=== PATIENT | male | born 1965 | race Caucasian/White ===

== ENCOUNTER → 2016-11-24 | Outpatient (CLI) | payer BC ==
[~2016-11-24] MED LIST: ASPI81TA28 PO; PRAV20TA PO; PRAV40TA2 PO
[2016-11-24 09:33] LABS: BASO % 0.2 %; BASO ABS # 0.01 K/uL (0-0.2); COMPLETE YES; EOS % 2.2 %; HEMATOCRIT 42.5 % (42-52); IG% 0.4 %; LYMPH % 40.8 %; LYMPH ABS # 1.89 K/uL (1.2-3.4); MEAN CELL VOLUME 85.3 fL (80-100); MEAN CORPUSCULAR HEMOGLOBIN 30.7 pg (25-34); MEAN PLATELET VOLUME 10.5 fL (7.4-10.4); MONO % 7.1 %; NEUT % 49.3 %; PLATELET COUNT 190 K/uL (130-400); RED BLOOD COUNT 4.98 M/uL (4.7-6.1); WHITE BLOOD COUNT 4.63 K/uL (4.8-10.8)
[2016-11-24 09:47] LABS: ALT/SGPT 35 U/L (12-78); AST/SGOT 19 U/L (15-37); BLOOD UREA NITROGEN 14 mg/dl (7-18); BUN/CREATININE RATIO 14.4 (10-20); CALCIUM 9.3 mg/dl (8.5-10.1); CARBON DIOXIDE 26 mmol/L (21-32); CHLORIDE 106 mmol/L (98-107); CREATININE 0.95 mg/dl (0.60-1.40); GLUCOSE 104 mg/dl (70-99); POTASSIUM 4.1 mmol/L (3.5-5.1); SODIUM 142 mmol/L (136-145)
[2016-11-24 09:53] LABS: ALB/GLOB RATIO 1.3 (0.9-2); ALKALINE PHOSPHATASE 82 U/L (45-117); CHOLESTEROL 206 mg/dl (0-200); CHOLESTEROL/HDL RATIO 5.6; HDL CHOLESTEROL 37 mg/dl; LDL CHOLESTEROL CALCULATED 125 mg/dl; TRIGLYCERIDES 219 mg/dl (0-150); VERY LOW DENSITY LIPOPROT CALC 44 mg/dl
== END | disposition home or self-care (01) ==
LOC: C.LAB1850 07:29
PROVIDERS: ATTEND Nurse Practitioner Family
DX: E78.00 Pure hypercholesterolemia, unspecified (principal)

== ENCOUNTER → 2016-12-02 | Outpatient (CLI) | payer BC ==
--- NOTE | 2016-12-02 14:56 | DIAGNOSTIC IMAGING REPORT ---
Study: Fusion CT of the sinuses INDICATION: Nasal septal deviation. Hypertrophic nasal turbinates. FINDINGS: Nasal septal displacement to the left. Moderate hypertrophic change and polypoid changes of the nasal turbinates. There is no evidence for a major nasal occlusive process. Prior antral window placement bilaterally. These are considered patent. The marshall ostiomeatal units show soft tissue narrowing. Moderate mucosal thickening of the maxillary and to a lesser extent ethmoid sinuses. Frontal sinuses are clear. Sphenoid sinuses are clear. There is no bony destructive process. The orbital margins are intact. IMPRESSION: 1. Moderate mucosal thickening of the maxillary and to a lesser extent ethmoid sinuses. 2. Nasal septal displacement to the left with mild to moderate hyperplastic change of the nasal turbinates. 3. Patent bilateral antral windows with soft tissue narrowing of the marshall ostiomeatal units. Electronically signed by: Stoney Mckeon M.D. 12/02/2016 2:55 PM Dictated Date/Time: 12/02/2016 2:47 PM
== END | disposition home or self-care (01) ==
LOC: C.CTS 14:03
PROVIDERS: ATTEND Physician Assistant
DX: J34.2 Deviated nasal septum (principal); J32.9 Chronic sinusitis, unspecified; J34.3 Hypertrophy of nasal turbinates

== ENCOUNTER → 2016-12-26 | Outpatient (CLI) | payer BC ==
--- NOTE | 2016-12-26 14:19 | DIAGNOSTIC IMAGING REPORT ---
CHEST 2 VIEWS ROUTINE CLINICAL HISTORY: R05 Cough COMPARISON STUDY: Chest CT dated 12/14/2008 FINDINGS: The cardiac and mediastinal contours are normal. There is no evidence of focal pulmonary consolidation. There is no evidence of failure. No pleural effusions are visualized.[ IMPRESSION: No active disease in the chest. Electronically signed by: Trey Venegas M.D. 12/26/2016 2:17 PM Dictated Date/Time: 12/26/2016 2:16 PM
== END | disposition home or self-care (01) ==
LOC: C.RAD1850 14:06
PROVIDERS: ATTEND Nurse Practitioner Family
DX: R05 Cough (principal)

== ENCOUNTER → 2017-04-30 | Outpatient (CLI) | payer BC ==
[2017-04-30 15:44] LABS: BASO % 0.4 %; BASO ABS # 0.02 K/uL (0-0.2); COMPLETE YES; EOS % 3.6 %; HEMATOCRIT 44.9 % (42-52); LYMPH % 25.4 %; MEAN CELL VOLUME 87.7 fL (80-100); MEAN CORPUSCULAR HEMOGLOBIN 30.9 pg (25-34); MEAN CORPUSCULAR HGB CONC 35.2 g/dl (32-36); MEAN PLATELET VOLUME 10.9 fL (7.4-10.4); NEUT % 63.6 %; PLATELET COUNT 191 K/uL (130-400); RED BLOOD COUNT 5.12 M/uL (4.7-6.1); WHITE BLOOD COUNT 4.72 K/uL (4.8-10.8)
[2017-04-30 15:58] LABS: PARTIAL THROMBOPLASTIN RATIO 0.9; PROTHROMBIN TIME (PATIENT) 10.3 SECONDS (9.0-12.0)
[2017-04-30 16:09] LABS: POTASSIUM 4.1 mmol/L (3.5-5.1)
== END | disposition home or self-care (01) ==
LOC: C.LAB1850 14:18
DX: Z01.818 Encounter for other preprocedural examination (principal)

== ENCOUNTER → 2017-05-25 | Day surgery (SDC) | payer BC ==
[2017-05-05 11:20] VITALS: Ht 182.9 cm; Wt 85.9 kg
[~2017-05-25] VITALS: Ht 182.9 cm; Wt 85.9 kg
[~2017-05-25] MED LIST changes: +CEFAZOLIN 2000 MG/60 ML D5W IV SCH; +EpINEphrine INJ 1MG/ML AMP 1 MG/ML AMP ONE; +FENTANYL CITRATE INJ 50 MCG/1 ML 2 ML VIAL ONE; +LACTATED RINGER'S 1000ML 1,000 ML IV SCH; +LIDOCAINE 4% MPF SOAK 5 ML = 1 DOSE TOP ONE; +LIDOCAINE/EPINEPHRINE 1% INJ 50 ML VIAL ONE; +MIDAZOLAM HCL 1 MG/ML 2ML VIAL ONE; +OXYMETAZOLINE HCL 0.05% NA SPR 15 ML BTL SCH; -PRAV20TA PO
[2017-05-25 09:34] VITALS: BP 137/83; PULSE 51; TEMP 36.5; O2SAT 96
--- NOTE | 2017-05-25 09:36 | History and Physical: Surg Cnt ---
History & Physical Date May 25, 2017. Chief Complaint CHRONIC SINUSITIS, SEPTAL DEVIATION, AND BILATERAL INFERIOR TURBINATE HYPERTROPHY History of Present Illness The patient is a 51 year old male with complaints of CHRONIC SINUSITIS WITH SYMPTOMS DESPITE MAXIMAL MEDICAL THERAPY. Past Medical/Surgical History PMH: CRS/DNS/B ITH, DYSLIPIDEMIA Additional History Hepatic Disease: No Endocrine Disorder: No Kidney Disease: No Hypertension: No Heart Disease: No Bleeding Tendencies: No Infectious Diseases: No Allergies Coded Allergies: No Known Allergies (Unverified , 05/25/17) Home Medications Scheduled Aspirin (Aspirin Ec), 81 MG PO QPM Pravastatin Sodium (Pravastatin Sodium), 40 MG PO HS Physical Examination Skin: warm/dry, no rash Eyes: normal inspection, EOMI, sclerae normal, + pertinent finding (SEVERE L DNS, R>L ITH, R MTH) Head: normocephalic, atraumatic Neck: supple, no adenopathy, trachea midline Respiratory/Chest: lungs clear, normal breath sounds, no respiratory distress Cardiovascular: regular rate, rhythm, no edema, no murmur Diagnosis CHRONIC SINUSITIS, SEPTAL DEVIATION, AND BILATERAL INFERIOR TURBINATE HYPERTROPHY Plan of Treatment B FESS/SEPTOPLASTY/INFERIOR TURBINATE REDUCTION
--- NOTE | 2017-05-25 09:49 | Progress Note ---
Progress Note Date of Service May 25, 2017. Progress Note PATIENT DID NOT HOLD ASA 2 WEEKS PREOP AND EVEN TOOK FULL DOSE ASA 3 DAYS AGO. SURGERY CANCELLED. WILL RESCHEDULE.
--- NOTE | 2017-05-25 13:13 | Anesthesiology Progress Note ---
Anesthesia Progress Note Date of Service May 25, 2017. Progress Notes The patient was cancelled for surgery by Dr. Leon because he recently took aspirin.
== END | disposition home or self-care (01) ==
LOC: X.SURG 09:18
DX: J32.9 Chronic sinusitis, unspecified (principal); J34.2 Deviated nasal septum; E78.5 Hyperlipidemia, unspecified; Z79.82 Long term (current) use of aspirin; Z53.09 Procedure and treatment not carried out because of other contraindication

== ENCOUNTER → 2017-06-12 | Day surgery (SDC) | payer BC ==
[2017-05-26 08:08] VITALS: Ht 182.9 cm; Wt 85.9 kg
[~2017-06-12] VITALS: Ht 182.9 cm; Wt 85.9 kg
[~2017-06-12] MED LIST changes: +ATROPINE SULFATE 0.1 MG/ML 5ML SYR IV PRN; +DEXAMETHASONE SOD INJ 4 MG/ML VIAL ONE; +EpHEDrine SULFATE INJ 50 MG/ML AMP IV PRN; +FENTANYL CITRATE INJ 50 MCG/1 ML 2 ML VIAL IV PRN; +GLYCOPYRROLATE INJ 0.2 MG/ML VIAL ONE; +HYDROCODONE/ACETAMOPHEN 5/325MG TAB PO PRN; +LIDOCAINE HCL 2% 2 ML VIAL (20MG/ML) ONE; +NEOSTIGMINE METHYLSULFATE 5 MG/5 ML SYR ONE; +ONDANSETRON INJ 2 MG/ML 2 ML VIAL IV PRN; +ONDANSETRON INJ 2 MG/ML 2 ML VIAL ONE; +OXYMETAZOLINE HCL 0.05% NA SPR 15 ML BTL NAE SCH; +OXYMETAZOLINE HCL 0.05% NA SPR 15 ML BTL PRN; -OXYMETAZOLINE HCL 0.05% NA SPR 15 ML BTL SCH; +PROMETHAZINE HCL INJ 6.25 MG in SODIUM CHLORIDE 0.9% 50ML 50 ML IV PRN; +PROPOFOL IV EMULSION 10 MG/ML 20 ML VIAL IV ONE
--- NOTE | 2017-06-12 07:55 | History & Physical Bridge - SC ---
H&P Re-Evaluation Bridge Note: I have examined the patient, reviewed the History & Physical and in the interval since the performance of the History & Physical I have noted the following changes of clinical significance: No changes noted
--- NOTE | 2017-06-12 10:21 | [facility] Operative Report ---
Operative Report Operative Date Jun 12, 2017. Pre-Operative Diagnosis Deviated Nasal Septum, Hypertrophy Nasal Turbinate Post-Operative Diagnosis Same Procedure(s) Performed Bilateral Endoscopic Sinus Surgery, Septoplasty, Bilateral Inferior Turbinate Reduction, And Right Gaby Bullosa Resection Surgeon Dr. Leon Breastfeeding Peer Counselor Surgeon(s) None Estimated Blood Loss 25 ML Findings 1. SEVERE L DNS 2. R>L ITH 3. LARGE R CB 4. MUCOSAL THICKENING BILATERAL MAXILLARY AND ETHMOID SINUSES Specimens None I attest to the content of the Intraoperative Record and any orders documented therein. Any exceptions are noted below.
--- NOTE | 2017-06-12 10:24 | Discharge Instructions ---
Discharge Instructions Date of Service Jun 12, 2017. Admission Reason for Admission: Deviated Nasal Septum, Hypertrophy Nasal Turbinate Discharge Discharge Diagnosis / Problem: SAME Discharge Goals Goal(s): Therapeutic intervention Activity Recommendations Activity Limitations: as noted below LIGHT ACTIVITY FOR 2 WEEKS; NO NOSE BLOWING FOR 2 WEEKS; NO DRIVING WHILE ON NORCO . Current Hospital Diet Patient's current hospital diet: Discharge Diet Recommended Diet: Regular Diet Procedures Procedures Performed: Bilateral Endoscopic Sinus Surgery, Septoplasty, Bilateral Inferior Turbinate Reduction, And Right Gaby Bullosa Resection Pending Studies Studies pending at discharge: no Medical Emergencies . Who to Call and When: Medical Emergencies: If at any time you feel your situation is an emergency, please call 911 immediately. . Non-Emergent Contact Non-Emergency issues call your: Surgeon . . "Provider Documentation" section prepared by Joel Leon. . VTE Core Measure Inpt VTE Proph given/why not?: SCD's
--- NOTE | 2017-06-12 11:06 | OPERATIVE REPORT ---
DATE OF OPERATION: 06/12/2017 PREOPERATIVE DIAGNOSES: 1. Chronic rhinosinusitis. 2. Severe left septal deviation. 3. Right greater than left inferior turbinate hypertrophy. 4. Large right jocelynn bullosa. POSTOPERATIVE DIAGNOSES: Same. PROCEDURES: 1. Bilateral maxillary antrostomies. 2. Bilateral complete ethmoidectomies. 3. Right endoscopic jocelynn bullosa resection. 4. Septoplasty. 5. Bilateral inferior turbinate outfracture and turbinoplasty. SURGEON: Dr. Joel Leon. ANESTHESIA: General endotracheal. ESTIMATED BLOOD LOSS: 25 mL. FINDINGS: 1. Severe left septal deviation. 2. Large right jocelynn bullosa. 3. Right greater than left inferior turbinate hypertrophy. 4. Mild maxillary and ethmoid sinus mucosal thickening. SPECIMENS: None. COMPLICATIONS: None. INDICATIONS FOR THE PROCEDURE: The patient is a 51-year-old male with a history of chronic sinusitis, which has been unresponsive to maximal medical therapy including systemic antibiotics and steroids. He also has a history of left greater than right nasal airway obstruction. He presents for the above-mentioned procedures on an outpatient elective basis. DESCRIPTION OF PROCEDURE: After informed consent had been obtained from the patient, the patient was wheeled to the operating room and placed on the operating table in the supine position. Monitors were placed. After induction of general endotracheal anesthesia, the patient was prepped in the usual fashion for endoscopic sinus surgery. Lidocaine and epinephrine pledgets were placed in the bilateral nasal cavities and pressure applied. The right-sided pledgets were first removed. The right middle turbinate and uncinate process were injected with 1% lidocaine with 1:100,000 epinephrine. Lidocaine and epinephrine pledget was then placed into the right middle meatus. On the left hand side, there was such as severe septal deviation that endoscopic sinus surgery could not be done on this side prior to the septoplasty. The right-sided pledget was removed. A sickle knife was used to make a longitudinal incision in the middle aspect of the right middle turbinate and the lateral half of the middle turbinate was removed using straight Aldo-Cut forceps and powered instrumentation in order to perform an endoscopic right jocelynn bullosa resection. Of note, the jocelynn bullosa was quite large and blocking visualization of the ethmoid bulla. An uncinatectomy was then performed using backbiting forceps and powered instrumentation. The natural ostium of the right maxillary sinus was identified and this was enlarged anteriorly, inferiorly, and posteriorly using backbiting forceps and powered instrumentation. A complete ethmoidectomy was then performed using powered instrumentation. The nasal septum was then injected with 1% lidocaine with 1:100,000 epinephrine. After allowing adequate time for vasoconstriction, a #15 scalpel was used to make a left hemitransfixion incision, through which the left-sided mucoperichondrial and mucoperiosteal flap was elevated. A #15 scalpel was then used to incise the quadrangular cartilage with care to preserve a 1.5-cm dorsal and caudal strut and the right-sided mucoperichondrial mucoperiosteal flap was elevated through this cartilaginous incision. A Cuate swivel knife was then used to remove the deviated portion of the quadrangular cartilage, which was severely deviated to the left hand side and blocking the airway almost 100%. A Mo-Ritchie forceps was then used to remove a septal bone more posterior superiorly that was causing further left septal deviation. There was a large bony spur, which was removed using a V-shaped osteotome, mallet, and Soheila forceps. After removal of the spur, the septum was found to be midline. The septal cavity was suctioned. A left hemitransfixion incision was closed with several simple interrupted 4-0 chromic sutures. A 4-0 plain gut suture on a Osmany needle was then used to perform a quilting stitch of the mucoperichondrial and mucoperiosteal flaps bilaterally. A left maxillary antrostomy and complete ethmoidectomy was then performed as similarly described for the right hand side. Of note, there was mild maxillary and ethmoid sinus mucosal thickening bilaterally. There was no mucopus or polyps. A Lyle elevator was then used to infracture and subsequently outfracture the inferior turbinates bilaterally. These were injected with 1% lidocaine with 1:100,000 epinephrine. A 2.0-m turbinate blade using powered instrumentation was then used to perform bilateral inferior turbinoplasties in a submucosal fashion. The sinonasal cavities were then suctioned. Merogel was then placed in the bilateral ethmoid cavities/middle meati. An orogastric tube was placed and the stomach was suctioned free of air and stomach contents. This marked the end of the case. The patient tolerated the procedure well and there were no apparent complications. All the instrumentation was removed from the patient. The patient was extubated and transferred to recovery room in stable condition. I attest to the content of the Intraoperative Record and any orders documented therein. Any exceptions are noted below. MTDD
[2017-06-12 12:00] VITALS: BP 143/83; PULSE 49; O2SAT 96
--- NOTE | 2017-06-12 12:11 | Anesthesiology Progress Note ---
Anesthesia Post Op Note Date & Time Jun 12, 2017 at 12:10 Vital Signs Pain Intensity: 0 Vital Signs Past 12 Hours Date Time Temp Pulse Resp B/P (MAP) Pulse Ox O2 Delivery O2 Flow Rate FiO2 06/12/17 12:00 49 16 143/83 (103) 96 Room Air 06/12/17 11:23 36.4 50 16 149/92 (111) 95 Room Air 06/12/17 11:16 141/97 06/12/17 11:12 36.5 54 16 139/106 97 Room Air 06/12/17 11:12 55 16 06/12/17 11:12 55 16 97 06/12/17 11:11 139/106 06/12/17 11:07 52 16 100 06/12/17 11:07 52 16 06/12/17 11:06 143/93 06/12/17 11:02 48 12 100 06/12/17 11:02 47 12 06/12/17 11:01 138/95 06/12/17 11:00 49 10 100 06/12/17 11:00 49 10 06/12/17 10:56 147/92 06/12/17 10:55 49 10 100 06/12/17 10:55 49 10 06/12/17 10:51 129/90 06/12/17 10:50 49 13 95 06/12/17 10:50 50 13 06/12/17 10:46 129/86 06/12/17 10:45 49 13 100 06/12/17 10:45 49 13 06/12/17 10:41 130/88 06/12/17 10:40 48 12 06/12/17 10:40 48 12 100 06/12/17 10:36 130/89 06/12/17 10:35 51 14 100 06/12/17 10:35 51 14 06/12/17 10:31 140/97 06/12/17 10:30 58 20 99 06/12/17 10:30 57 20 06/12/17 10:28 151/99 06/12/17 10:27 36.2 61 20 151/99 100 Humidified Oxygen 6 Mask 06/12/17 10:26 156/103 06/12/17 07:02 36.7 73 18 157/92 (113) 96 Room Air Notes Mental Status: alert / awake / arousable, participated in evaluation Pt Amnestic to Procedure: Yes Nausea / Vomiting: adequately controlled Pain: adequately controlled Airway Patency, RR, SpO2: stable & adequate BP & HR: stable & adequate Hydration State: stable & adequate Anesthetic Complications: no major complications apparent
== END | disposition home or self-care (01) ==
LOC: X.SURG 06:56
DX: J32.9 Chronic sinusitis, unspecified (principal); J34.2 Deviated nasal septum; J34.3 Hypertrophy of nasal turbinates; J34.89 Other specified disorders of nose and nasal sinuses

== ENCOUNTER → 2017-08-03 | Outpatient (CLI) | payer BC ==
[~2017-08-03] MED LIST changes: -ASPI81TA28 PO; -ATROPINE SULFATE 0.1 MG/ML 5ML SYR IV PRN; -CEFAZOLIN 2000 MG/60 ML D5W IV SCH; -DEXAMETHASONE SOD INJ 4 MG/ML VIAL ONE; -EpHEDrine SULFATE INJ 50 MG/ML AMP IV PRN; -EpINEphrine INJ 1MG/ML AMP 1 MG/ML AMP ONE; -FENTANYL CITRATE INJ 50 MCG/1 ML 2 ML VIAL IV PRN; -FENTANYL CITRATE INJ 50 MCG/1 ML 2 ML VIAL ONE; -GLYCOPYRROLATE INJ 0.2 MG/ML VIAL ONE; -HYDROCODONE/ACETAMOPHEN 5/325MG TAB PO PRN; -LACTATED RINGER'S 1000ML 1,000 ML IV SCH; -LIDOCAINE 4% MPF SOAK 5 ML = 1 DOSE TOP ONE; -LIDOCAINE HCL 2% 2 ML VIAL (20MG/ML) ONE; -LIDOCAINE/EPINEPHRINE 1% INJ 50 ML VIAL ONE; -MIDAZOLAM HCL 1 MG/ML 2ML VIAL ONE; -NEOSTIGMINE METHYLSULFATE 5 MG/5 ML SYR ONE; -ONDANSETRON INJ 2 MG/ML 2 ML VIAL IV PRN; -ONDANSETRON INJ 2 MG/ML 2 ML VIAL ONE; -OXYMETAZOLINE HCL 0.05% NA SPR 15 ML BTL NAE SCH; -OXYMETAZOLINE HCL 0.05% NA SPR 15 ML BTL PRN; -PROMETHAZINE HCL INJ 6.25 MG in SODIUM CHLORIDE 0.9% 50ML 50 ML IV PRN; -PROPOFOL IV EMULSION 10 MG/ML 20 ML VIAL IV ONE
[2017-08-03 09:40] LABS: ALT/SGPT 38 U/L (12-78); AST/SGOT 24 U/L (15-37); BLOOD UREA NITROGEN 21 mg/dl (7-18); BUN/CREATININE RATIO 16.5 (10-20); CALCIUM 8.9 mg/dl (8.5-10.1); CARBON DIOXIDE 23 mmol/L (21-32); CHLORIDE 103 mmol/L (98-107); CREATININE 1.25 mg/dl (0.60-1.40); GLUCOSE 135 mg/dl (70-99); POTASSIUM 3.6 mmol/L (3.5-5.1); SODIUM 136 mmol/L (136-145)
[2017-08-03 09:42] LABS: ALB/GLOB RATIO 1.1 (0.9-2); ALKALINE PHOSPHATASE 105 U/L (45-117); CHOLESTEROL 196 mg/dl (0-200); CHOLESTEROL/HDL RATIO 4.2; HDL CHOLESTEROL 47 mg/dl; LDL CHOLESTEROL CALCULATED 113 mg/dl; TRIGLYCERIDES 182 mg/dl (0-150); VERY LOW DENSITY LIPOPROT CALC 36 mg/dl
== END | disposition home or self-care (01) ==
LOC: C.LAB1850 07:01
PROVIDERS: ATTEND Nurse Practitioner Family
DX: E78.00 Pure hypercholesterolemia, unspecified (principal)

== ENCOUNTER → 2017-08-05 | Outpatient (CLI) | payer BC ==
[2017-08-05 09:48] LABS: MAGNESIUM 2.2 mg/dl (1.8-2.4)
[2017-08-05 10:04] LABS: ESTIMATED AVERAGE GLUCOSE 97 mg/dl; HA1C FLAG Normal (Normal)
== END | disposition home or self-care (01) ==
LOC: C.LAB1850 08:24
PROVIDERS: ATTEND Nurse Practitioner Family
DX: R73.9 Hyperglycemia, unspecified (principal); M79.1 Myalgia; E78.00 Pure hypercholesterolemia, unspecified